=== PATIENT | female | born 1970 | race Caucasian/White ===

== ENCOUNTER 2016-12-15 22:08 | Emergency (ER) | payer SELFPAY ==
[~2016-12-15] VITALS: Ht 152.4 cm; Wt 60.8 kg
== END 2016-12-15 22:55 | disposition home or self-care (01) ==
LOC: ED 22:08
DX: S93.601A Unspecified sprain of right foot, initial encounter (principal); F17.200 Nicotine dependence, unspecified, uncomplicated; Z88.6 Allergy status to analgesic agent; Z91.013 Allergy to seafood; Z91.040 Latex allergy status; W22.8XXA Striking against or struck by other objects, initial encounter; Y93.89 Activity, other specified; Y92.89 Other specified places as the place of occurrence of the external cause; Y99.8 Other external cause status

== ENCOUNTER → 2023-11-14 | Outpatient (CLI) | payer BC ==
[2023-11-14 09:09] LABS: BASO # 0.1 10*3/uL (0.0-0.1); BASO % 0.5 % (0.0-1.0); EOS # 0.3 10*3/uL (0.0-0.4); EOS % 2.1 % (1.0-4.0); HEMATOCRIT 40.9 % (37.0-47.0); LYMPH # 3.3 10*3/uL (1.3-4.4); LYMPH % 21.4 % (27.0-41.0); MEAN CELL VOLUME 92.7 fl (81.0-99.0); MEAN CORPUSCULAR HGB 29.9 pg (27.0-31.0); MEAN CORPUSCULAR HGB CONC 32.3 g/dl (33.0-37.0); MEAN PLATELET VOLUME 9.6 fl (9.6-12.3); MONO # 1.1 10*3/uL (0.1-1.0); MONO % 6.8 % (3.0-9.0); NEUT # 10.6 10*3/uL (2.3-7.9); NEUT % 68.8 % (47.0-73.0); PLATELET COUNT AUTOMATED 350 10*3/uL (130-400); RED BLOOD COUNT 4.41 10*6/uL (4.10-5.10); RED CELL DISTRI WIDTH 14.2 % (0-14.5); WHITE BLOOD COUNT 15.4 10*3/uL (4.8-10.8)
[2023-11-14 09:32] LABS: ALKALINE PHOSPHATASE 64 U/L (46-116); BUN 12 mg/dl (9-23); CHLORIDE 107 mmol/L (98-107); CHOLESTEROL 258 mg/dL (<200); LDL CHOLESTEROL 199 mg/dL (9-159); POTASSIUM 4.5 mmol/L (3.4-5.1); SGPT/ALT 13 U/L (5-49); TOTAL PROTEIN 6.9 gm/dL (6.0-8.0); TRIGLYCERIDES 57 mg/dl (<150)
[2023-11-14 09:55] LABS: VITAMIN D, 25-HYDROXY 62.8 ng/mL (30-100)
== END | disposition home or self-care (01) ==
LOC: LAB 08:46
PROVIDERS: ATTEND Nurse Practitioner Family
DX: Z13.0 Encounter for screening for diseases of the blood and blood-forming organs and certain disorders involving the immune mechanism (principal); Z13.228 Encounter for screening for other metabolic disorders; E04.1 Nontoxic single thyroid nodule; E78.2 Mixed hyperlipidemia; E55.9 Vitamin D deficiency, unspecified

== ENCOUNTER → 2023-12-05 | Outpatient (CLI) | payer BC | END | disposition home or self-care (01) | LOC: MAMMO 01:06 | PROVIDERS: ATTEND Nurse Practitioner Family | DX: Z12.31 Encounter for screening mammogram for malignant neoplasm of breast (principal); Z13.0 Encounter for screening for diseases of the blood and blood-forming organs and certain disorders involving the immune mechanism; Z13.228 Encounter for screening for other metabolic disorders; E04.1 Nontoxic single thyroid nodule; E55.9 Vitamin D deficiency, unspecified; E78.2 Mixed hyperlipidemia ==

== ENCOUNTER → 2024-02-27 | Outpatient (CLI) | payer BC | END | disposition home or self-care (01) | LOC: RAD 10:54 | PROVIDERS: ATTEND Nurse Practitioner Family | DX: M25.512 Pain in left shoulder (principal); M79.2 Neuralgia and neuritis, unspecified; M47.812 Spondylosis without myelopathy or radiculopathy, cervical region ==

== ENCOUNTER → 2024-03-19 | Outpatient (CLI) | payer BC | END | disposition home or self-care (01) | LOC: MRI 01:43 | PROVIDERS: ATTEND Nurse Practitioner Family | DX: M50.10 Cervical disc disorder with radiculopathy, unspecified cervical region (principal) ==

== ENCOUNTER 2024-10-25 11:08 | Emergency (ER) | payer SELFPAY ==
[~2024-10-25] VITALS: Ht 149.8 cm; Wt 66.2 kg
[2024-10-25] MEDS ORDERED: PREDNISONE20 M1 PO (11:33)
[2024-10-25] MEDS ORDERED: KENALOG 0.1% LO60 ML T (11:33)
[2024-10-25] MEDS ORDERED: CEPHALEXIN500 M1 PO (11:33)
== END 2024-10-25 11:40 | disposition home or self-care (01) ==
LOC: ED 11:08
DX: L25.9 Unspecified contact dermatitis, unspecified cause (principal); L03.116 Cellulitis of left lower limb; R21 Rash and other nonspecific skin eruption; Z88.5 Allergy status to narcotic agent; Z91.013 Allergy to seafood; Z91.041 Radiographic dye allergy status; Z91.040 Latex allergy status